=== PATIENT | female | born 1945 | race Caucasian/White ===

== ENCOUNTER 2017-12-26 08:00 | Outpatient (CLI) | payer MEDICARE, OTHER ==
[2017-12-26 13:59] LABS: THYROID STIMULATING HORMONE 0.28 uIU/mL (0.34-5.60)
[2017-12-26 14:04] LABS: ALBUMIN 4.2 g/dL (3.2-5.5); ALBUMIN/GLOBULIN RATIO 1.4 (1.0-2.2); ALKALINE PHOSPHATASE 57 IU/L (42-121); ALT ALANINE AMINOTRANSFERASE 22 IU/L (10-60); AST ASPARTATE AMINOTRANSFERASE 20 IU/L (10-42); BILIRUBIN,TOTAL 0.7 mg/dL (0.2-1.0); BUN - BLOOD UREA NITROGEN 16 mg/dL (6-20); CALCIUM 8.7 mg/dL (8.5-10.3); CARBON DIOXIDE - CO2 26 mmol/L (21-32); CHLORIDE 105 mmol/L (101-111); CHOL/HDL RATIO 3.1 (<4.4); CHOLESTEROL 173 mg/dL; CREATININE 0.9 mg/dL (0.4-1.0); GFR - MDRD 62 (>89); GLUCOSE 104 mg/dL (70-100); HDL CHOLESTEROL 56 mg/dL; LDL CHOLESTEROL,CALCULATED 94 mg/dL; LDL/HDL RATIO 1.7 (<4.4); SODIUM 139 mmol/L (135-145); TOTAL PROTEIN 7.3 g/dL (6.7-8.2); VLDL CHOLESTEROL 23 mg/dL
[2017-12-26 14:15] LABS: BASOPHILS % (AUTO) 0.6 %; EOSINOPHILS # (AUTO) 0.1 10^3/uL (0.0-0.7); EOSINOPHILS % (AUTO) 1.6 %; HGB - HEMOGLOBIN 12.7 g/dL (12.0-16.0); LYMPHOCYTES # (AUTO) 1.7 10^3/uL (1.5-3.5); LYMPHOCYTES % (AUTO) 30.2 %; MEAN CORPUSCULAR HEMOGLOBIN 30.1 pg (27.0-31.0); MEAN CORPUSCULAR HGB CONC 33.3 g/dL (32.0-36.0); MEAN CORPUSCULAR VOLUME 90.3 fL (81.0-99.0); MEAN PLATELET VOLUME 8.2 fL (7.9-10.8); MONOCYTES # (AUTO) 0.3 10^3/uL (0.0-1.0); MONOCYTES % (AUTO) 5.3 %; NEUTROPHILS # (AUTO) 3.4 10^3/uL (1.5-6.6); NEUTROPHILS % (AUTO) 62.3 %; PLT - PLATELET COUNT 298 10^3/uL (130-450); RED BLOOD COUNT 4.23 10^6/uL (4.20-5.40); RED CELL DISTRIBUTION WIDTH 13.8 % (12.0-15.0); WHITE BLOOD COUNT 5.5 x10^3/uL (4.8-10.8)
[2017-12-29 12:31] LABS: HEPATITIS C ANTIBODY NON-REACTIVE (NON-REACTIVE)
== END 2017-12-26 08:01 | disposition home or self-care (01) ==
LOC: LAB.N 08:00
PROVIDERS: ATTEND Physician Assistant Medical
DX: Z79.899 Other long term (current) drug therapy (principal); E55.9 Vitamin D deficiency, unspecified; E53.8 Deficiency of other specified B group vitamins; I45.10 Unspecified right bundle-branch block; E78.5 Hyperlipidemia, unspecified; Z11.59 Encounter for screening for other viral diseases; E06.3 Autoimmune thyroiditis
CPT/HCPCS: 36415; 80053; 80061; 82306; 82607; 83721; 83735; 84443; 85025; 86803

== ENCOUNTER 2018-01-05 14:43 | Outpatient (CLI) | payer MEDICARE, OTHER ==
--- NOTE | 2018-01-06 12:43 | Mammography Report ---
DIGITAL SCREENING MAMMOGRAM: 01/05/2018 CLINICAL INDICATION: A 72-year-old with family history of breast cancer, history of benign biopsy for screening. COMPARISON: 10/2015, 09/2015, 01/2014, 10/2012, 02/2012, 08/2011, 02/2011, 08/2010, 07/2010. TECHNIQUE: Routine CC and MLO projections were obtained of the breasts. FINDINGS: The breasts again demonstrate heterogeneously dense fibroglandular parenchyma bilaterally. Coarse and punctate, typically benign calcifications are present. Biopsy marker in the right upper outer posterior breast is stable. No suspicious masses, clustered microcalcifications, or regions of architectural distortion are identified. IMPRESSION: BENIGN FINDINGS. RECOMMENDATION: Routine annual screening unless otherwise clinically indicated. BI-RADS CATEGORY 2 - BENIGN FINDINGS. STANDARD QUALIFYING STATEMENTS: 1. This examination was reviewed with the aid of Computer-Aided Detection (CAD). 2. A negative or benign imaging report should not delay biopsy if clinically suspicious findings are present. Consider surgical consultation if warranted. More than 5% of cancers are not identified by imaging. 3. Dense breasts may obscure an underlying neoplasm. TD: 01/06/2018 12:20
== END 2018-01-05 14:44 | disposition home or self-care (01) ==
LOC: DI 14:43
PROVIDERS: ATTEND Physician Assistant Medical
DX: Z12.31 Encounter for screening mammogram for malignant neoplasm of breast (principal); Z80.3 Family history of malignant neoplasm of breast
CPT/HCPCS: 77067

== ENCOUNTER 2018-01-05 14:45 | Outpatient (CLI) | payer MEDICARE, OTHER ==
--- NOTE | 2018-01-06 17:38 | DEXA Report ---
DEXA: 01/05/2018 CLINICAL INDICATION: Postmenopausal. TECHNIQUE: Dual energy x-ray absorptiometry (DXA) was performed on a [employer] system. Regions measured are the AP spine, femoral neck, and, if needed, forearm. COMPARISON: None. In accordance with the International Society for Clinical Densitometry (ISCD) guidelines, data from previous exams may be reanalyzed using current recommendations and techniques. This is done to allow a more accurate basis for comparison with the current study. FINDINGS The data for the lumbar spine is as follows: REGION BMD (g/cm/cm) T-SCORE Z-SCORE L1 1.012 -1.0 0.1 L2 1.097 -0.9 0.2 L3 1.144 -0.5 0.6 L4 1.213 0.1 1.2 L1-L4 1.121 -0.5 0.6 NOTE: All evaluable vertebrae are used for classification. The data for the hip is as follows: REGION BMD (g/cm/cm) T-SCORE Z-SCORE Neck 0.843 -1.4 0.0 TOTAL 0.925 -0.7 0.4 NOTE: The femoral neck or total proximal femur, whichever is lowest, is used for classification. IMPRESSION WHO CLASSIFICATION BASED ON THE INTERNATIONAL REFERENCE STANDARD IS OSTEOPENIA (REFERENCE LEFT FEMORAL NECK). FRACTURE RISK IS INCREASED. RECOMMENDATION: Patients with diagnosis of osteoporosis or osteopenia should have regular bone mineral density assessment. For those eligible for Medicare, routine testing is allowed once every 2 years. Testing frequency can be increased for patients who have rapidly progressing disease or for those who are receiving medical therapy to restore bone mass. COMMENT World Health Organization (WHO) definitions for osteoporosis and osteopenia: NORMAL BMD: T-score at 1.0 or higher, fracture risk is low. OSTEOPENIA BMD: T-score between 1.0 and -2.5, fracture risk is increased. OSTEOPOROSIS BMD: T-score at 2.5 or lower, fracture risk high. National Osteoporosis Foundation recommends: 1. Obtain adequate dietary calcium (at least 1200 mg per day) and vitamin D (400 -800 international units per day). 2. Participate, as appropriate, in regular weightbearing and muscle- strengthening exercise. 3. Avoid tobacco use and reduce alcohol and caffeine intake. 4. For more detailed information see the website at www.NOF.org. TD: 01/05/2018 15:48 MTDD
== END 2018-01-05 14:46 | disposition home or self-care (01) ==
LOC: DI 14:45
PROVIDERS: ATTEND Physician Assistant Medical
DX: Z78.0 Asymptomatic menopausal state (principal); M85.88 Other specified disorders of bone density and structure, other site
CPT/HCPCS: 77080

== ENCOUNTER 2018-02-11 08:00 | Outpatient (CLI) | payer MEDICARE, OTHER | END 2018-02-11 08:01 | LOC: LAB.N 08:00 | PROVIDERS: ATTEND Physician Assistant Medical | DX: E06.3 Autoimmune thyroiditis (principal); Z79.899 Other long term (current) drug therapy | CPT/HCPCS: 36415; 84443 ==

== ENCOUNTER 2018-03-31 11:58 | Outpatient (CLI) | payer MEDICARE, OTHER ==
[2018-03-31 20:01] LABS: HB2 TOTAL 14.2 g/dL; HEMOGLOBIN A1C 0.61 g/dL; HEMOGLOBIN A1C % 6.1 % (4.6-6.2)
== END 2018-03-31 11:59 ==
LOC: LAB.N 11:58
PROVIDERS: ATTEND Physician Assistant Medical
DX: Z79.899 Other long term (current) drug therapy (principal); E06.3 Autoimmune thyroiditis; E11.9 Type 2 diabetes mellitus without complications
CPT/HCPCS: 36415; 83036; 84443

== ENCOUNTER 2018-04-23 14:22 | Outpatient (CLI) | payer MEDICARE, OTHER ==
[2018-04-23 17:14] LABS: CREATININE 0.9 mg/dL (0.4-1.0)
== END 2018-04-23 14:23 | disposition home or self-care (01) ==
LOC: LAB.R 14:22
PROVIDERS: ATTEND Physician Assistant Medical
DX: F09 Unspecified mental disorder due to known physiological condition (principal); Z79.899 Other long term (current) drug therapy; E53.8 Deficiency of other specified B group vitamins; E55.9 Vitamin D deficiency, unspecified
CPT/HCPCS: 82306; 82565; 82607

== ENCOUNTER 2018-05-13 12:28 | Outpatient (CLI) | payer MEDICARE, OTHER ==
[2018-05-13] MEDS ORDERED: GADOBUTROL 7.5 MMOL/7.5 ML VIAL ONE (13:24)
[2018-05-13] MEDS ORDERED: GADOBUTROL 7.5 MMOL/7.5 ML VIAL IVP ONE (13:47)
--- NOTE | 2018-05-14 09:44 | MRI Report ---
Reason: PITUITARY CYST,COGNITIVE DISORDER, MILD MODERATE Procedure Date: 05/13/2018 Accession Number: [id number] / [id number] Procedure: MRI - Brain W/WO CPT Code: FULL RESULT: EXAM: MRI BRAIN AND PITUITARY WITHOUT AND WITH CONTRAST. EXAM DATE: 05/13/2018 02:16 PM. CLINICAL HISTORY: 72-year-old female. PITUITARY CYST,COGNITIVE DISORDER, MILD MODERATE. COMPARISON: BRAIN W/WO 10/13/2015 3:29 PM. TECHNIQUE: Multiplanar, multisequence T1-weighted and fluid-sensitive MR sequences of the brain and pituitary were performed. Other: None. IV Contrast: . FINDINGS: Brain Volume: Normal for age. Parenchyma: No masses, infarcts, or hemorrhage. Redemonstration moderate T2/FLAIR hyperintense primarily subcortical but also periventricular and deep white matter lesions within cerebral hemispheres bilaterally, overall similar to the prior study. Foci of susceptibility artifact. No abnormal enhancement. Pituitary: 5.8 mm craniocaudally x 11 mm AP x 15 mm transversely. Interval near complete resolution of the previously seen large cyst within the posterior pituitary, with a possible 4 mm nonenhancing focus still present within the posterior most sella (series 1201 image 7). No hemorrhage or enlargement. The superior margin is concave. The pituitary stalk is normal in thickness, minimally deviated to the right.. The adjacent parasellar structures are within normal limits. Ventricles/Cisterns: No hydrocephalus. No abnormal extra-axial fluid collection or hemorrhage. Orbits: Symmetric and unremarkable. IAC: Symmetric and unremarkable. Vasculature: Normal signal flow void is seen in the major arterial structures at the skull base. The dural sinuses are patent and enhance normally. Sinuses: No acute sinus disease. Bones: No focal pathologic appearing marrow signal changes. Other: None. IMPRESSION: 1. Interval near complete resolution of the previously seen large cyst within the posterior pituitary. A possible 4 mm nonenhancing focus still present within the posterior most sella (series 1201 image 7), although given this far posterior location may represent volume averaging from clivus. Overall, in the absence of treatment, this likely represents spontaneous involution/rupture. 2. No MRI evidence of acute intracranial abnormality. Specifically, no evidence of acute or subacute infarct, acute intracranial hemorrhage, mass, midline shift, or hydrocephalus. No abnormal parenchymal enhancement. 3. Redemonstration moderate T2/FLAIR hyperintense primarily subcortical but also periventricular and deep white matter lesions within cerebral hemispheres bilaterally, overall similar to the prior study. These lesions are nonspecific, and can be seen with the entire gamut of white matter conditions, including migraine headaches and as sequela of chronic microangiopathy. RADIA
== END 2018-05-13 12:29 | disposition home or self-care (01) ==
LOC: DI 12:28
PROVIDERS: ATTEND Physician Assistant Medical
DX: E23.6 Other disorders of pituitary gland (principal); F09 Unspecified mental disorder due to known physiological condition
CPT/HCPCS: 70553; A9585

== ENCOUNTER 2018-10-13 16:11 | Emergency (ER) | payer MEDICARE, OTHER ==
[2018-10-13] MEDS ORDERED: PROMETHAZINE INJ 12.5 MG in SODIUM CHLORIDE 0.9% 50 ML IV STA (16:47)
--- NOTE | 2018-10-13 16:49 | ED Physician Documentation ---
PD HPI NVD - Stated complaint Stated Complaint: NAUSEA - Chief complaint Chief Complaint: Abd Pain - History obtained from History obtained from: Patient, Family () - History of Present Illness Timing - onset: Other (This is a 73-year-old woman with history of dementia. She saw her neurologist a couple of months ago and was started on rivastigmine. This was by a patch. Subsequent to that she started to develop progressive nausea not associated with vomiting, significant changes in her bowel movements, vomiting, or abdominal pain. Also no headache. She saw her physician yesterday for preserved prescribed her Zofran and she feels like that made her worse.) Review of Systems Constitutional: denies: Fever, Chills GI: reports: Nausea. denies: Abdominal Pain, Vomiting, Diarrhea PD PAST MEDICAL HISTORY - Past Medical History Cardiovascular: High cholesterol GI: GERD Psych: Panic attacks Musculoskeletal: Chronic back pain - Past Surgical History Past Surgical History: Yes /[employer]: Hysterectomy HEENT: Tonsil/Adenoidectomy Derm: Skin cancer surgery - Present Medications Home Medications: Ambulatory Orders Medication Instructions Recorded Confirmed Butalb/Acetaminophen/Caffeine PRN 07/24/16 [Fioricet 50-300-40 mg Capsule] Cholecalciferol (Vitamin D3) 1 tab 07/24/16 [Vitamin D3] Cyclosporine [Restasis] 1 each BID 07/24/16 07/24/16 Levothyroxine [Synthroid] 125 mcg PO QDAC 07/24/16 07/24/16 Mesalamine [Canasa] 1 ea 07/24/16 RX: Atorvastatin [Lipitor] 20 mg PO DAILY 07/24/16 07/24/16 RX: Sumatriptan Succinate [Imitrex] 100 mg PO DAILY 07/24/16 07/24/16 RX: raNITIdine [Zantac] 1 tab BID 07/24/16 07/24/16 Vitamin B12 07/24/16 Promethazine [Phenergan] 25 mg PO Q6H PRN #20 tab 10/13/18 - Allergies Allergies/Adverse Reactions: Allergies Allergy/AdvReac Type Severity Reaction Status Date / Time codeine Allergy Anxiety Verified 10/13/18 16:26 hydrocodone Allergy Hallucinati Verified 10/13/18 17:23 ons ibuprofen [From Motrin] Allergy Anxiety Verified 10/13/18 16:26 meperidine HCl * Allergy Hallucinati Verified 10/13/18 16:26 [From Demerol] ons morphine Allergy Anxiety Verified 10/13/18 17:25 oxycodone Allergy Anxiety Verified 10/13/18 17:24 - Social History Does the pt smoke?: No Smoking Status: Never smoker Does the pt drink ETOH?: Yes PD ED PE NORMAL - Vitals Vital signs reviewed: Yes - General General: Other (Mild memory difficulties, retching and slightly tremulous) - Cardiac Cardiac: RRR, No murmur - Respiratory Respiratory: No respiratory distress, Clear bilaterally - Abdomen Abdomen: Normal bowel sounds, Soft, Non tender - Derm Derm: No rash - Extremities Extremities: No edema, No calf tenderness / cord - Neuro Neuro: Normal speech Results - Vitals Vitals: Vital Signs - 24 hr 10/13/18 10/13/18 10/13/18 16:21 18:29 19:28 Temperature 36.8 C 36.5 C 36.6 C Heart Rate 102 H 79 87 Respiratory 18 16 16 Rate Blood Pressure 144/79 H 139/75 H 146/70 H O2 Saturation 99 97 97 Oxygen O2 Source Room air - EKG (time done) 1705 Rate: Rate (enter#) (92) Rhythm: NSR Gordon: LAD Intervals: Normal [place] QRS: Normal Ischemia: Normal ST segments, Non specific changes Computer interpretation: Agree with computer - Labs Labs: Laboratory Tests 10/13/18 10/13/18 10/13/18 17:32 17:32 17:32 WBC 6.9 RBC 3.84 L Hgb 12.2 Hct 35.3 L MCV 92.0 MCH 31.8 H MCHC 34.6 RDW 14.4 Plt Count 293 MPV 7.7 L Neut # (Auto) 4.6 Lymph # (Auto) 1.6 [place] # (Auto) 0.5 Eos # (Auto) 0.0 Baso # (Auto) 0.1 Absolute Nucleated RBC 0.00 Nucleated RBC % 0.0 Sodium 139 Potassium 3.2 L Chloride 102 Carbon Dioxide 26 Anion Gap 11.0 BUN 15 Creatinine 1.1 H Estimated GFR (MDRD) 49 L Glucose 98 Calcium 9.3 Total Bilirubin 0.9 AST 25 ALT 23 Alkaline Phosphatase 60 Troponin I < 0.04 Total Protein 7.5 Albumin 4.4 Globulin 3.1 Albumin/Globulin Ratio 1.4 Lipase 29 PD MEDICAL DECISION MAKING - ED course ED course: 73-year-old woman with nausea after starting Brar stick mean for presumed dementia as she does not have parkinsonism. She has worsening memory difficulties and much of the history is from the . Workup demonstrated only modest hypokalemia which was repleted orally after she had good relief with IV Phenergan here. Departure - Departure Disposition: 01 Home, Self Care Clinical Impression: Nausea, Hypokalemia Condition: Good Record reviewed to determine appropriate education?: Yes Instructions: Hypokalemia Dc Prescriptions: Promethazine [Phenergan] 25 mg PO Q6H PRN #20 tab PRN Reason: Nausea / Vomiting Comments: Call your doctor to arrange a follow-up appointment, make the next available appointment. In the interim, return anytime if worse or if new symptoms develop. Your blood pressure was elevated today on check into the emergency department. This does not mean that you have hypertension, it is a common phenomenon to come to the emergency department and have elevated blood pressure. I recommend that you see your primary care physician within the week to have it rechecked when you are feeling better. Discharge Date/Time: 10/13/18 19:37
[2018-10-13 17:55] LABS: BASOPHILS # (AUTO) 0.1 10^3/uL (0.0-0.1); BASOPHILS % (AUTO) 0.8 %; EOSINOPHILS % (AUTO) 0.5 %; HGB - HEMOGLOBIN 12.2 g/dL (12.0-16.0); LYMPHOCYTES # (AUTO) 1.6 10^3/uL (1.5-3.5); MEAN CORPUSCULAR HEMOGLOBIN 31.8 pg (27.0-31.0); MEAN CORPUSCULAR HGB CONC 34.6 g/dL (32.0-36.0); MEAN PLATELET VOLUME 7.7 fL (7.9-10.8); MONOCYTES # (AUTO) 0.5 10^3/uL (0.0-1.0); MONOCYTES % (AUTO) 6.9 %; NEUTROPHILS # (AUTO) 4.6 10^3/uL (1.5-6.6); NEUTROPHILS % (AUTO) 67.8 %; PLT - PLATELET COUNT 293 10^3/uL (130-450); RED BLOOD COUNT 3.84 10^6/uL (4.20-5.40); RED CELL DISTRIBUTION WIDTH 14.4 % (12.0-15.0); WHITE BLOOD COUNT 6.9 x10^3/uL (4.8-10.8)
[2018-10-13 17:57] LABS: ALBUMIN 4.4 g/dL (3.2-5.5); ALBUMIN/GLOBULIN RATIO 1.4 (1.0-2.2); BILIRUBIN,TOTAL 0.9 mg/dL (0.2-1.0); CALCIUM 9.3 mg/dL (8.5-10.3); CREATININE 1.1 mg/dL (0.4-1.0); TOTAL PROTEIN 7.5 g/dL (6.7-8.2)
[2018-10-13] MEDS ORDERED: PROMETHAZINE 25 MG TABLET PO STA (19:19)
[2018-10-13] MEDS ORDERED: POTASSIUM BICARB 25 MEQ TABLET PO STA (19:19)
[2018-10-13 19:30] VITALS: BP 146/70
== END 2018-10-13 19:37 | disposition home or self-care (01) ==
LOC: ED 16:11
DX: R11.0 Nausea (principal); T44.1X5A Adverse effect of other parasympathomimetics [cholinergics], initial encounter; E87.6 Hypokalemia; F03.90 Unspecified dementia, unspecified severity, without behavioral disturbance, psychotic disturbance, mood disturbance, and anxiety; R03.0 Elevated blood-pressure reading, without diagnosis of hypertension
CPT/HCPCS: 36415; 80053; 83690; 84484; 85025; 93005; 96365; 99283; A9270; J7040; Q0169

== ENCOUNTER 2018-11-06 09:20 | Outpatient (CLI) | payer MEDICARE, OTHER ==
[2018-11-06 12:59] LABS: HGB - HEMOGLOBIN 12.3 g/dL (12.0-16.0); MEAN CORPUSCULAR HGB CONC 33.7 g/dL (32.0-36.0); MEAN CORPUSCULAR VOLUME 91.9 fL (81.0-99.0); MEAN PLATELET VOLUME 7.7 fL (7.9-10.8); RED BLOOD COUNT 3.96 10^6/uL (4.20-5.40); RED CELL DISTRIBUTION WIDTH 14.8 % (12.0-15.0); WHITE BLOOD COUNT 5.5 x10^3/uL (4.8-10.8)
[2018-11-06 13:33] LABS: ALBUMIN 3.9 g/dL (3.2-5.5); ALBUMIN/GLOBULIN RATIO 1.4 (1.0-2.2); ALKALINE PHOSPHATASE 52 IU/L (42-121); ALT ALANINE AMINOTRANSFERASE 19 IU/L (10-60); AST ASPARTATE AMINOTRANSFERASE 21 IU/L (10-42); BILIRUBIN,TOTAL 0.6 mg/dL (0.2-1.0); BUN - BLOOD UREA NITROGEN 19 mg/dL (6-20); CHOL/HDL RATIO 2.3 (<4.4); CHOLESTEROL 209 mg/dL; CREATININE 0.8 mg/dL (0.4-1.0); GFR - MDRD 71 (>89); HDL CHOLESTEROL 90 mg/dL; LDL CHOLESTEROL,CALCULATED 110 mg/dL; LDL/HDL RATIO 1.2 (<4.4); TOTAL PROTEIN 6.7 g/dL (6.7-8.2); VLDL CHOLESTEROL 9 mg/dL
[2018-11-06 13:46] LABS: CALCIUM 9.4 mg/dL (8.5-10.3); CARBON DIOXIDE - CO2 30 mmol/L (21-32); CHLORIDE 104 mmol/L (101-111); GLUCOSE 94 mg/dL (70-100); SODIUM 144 mmol/L (135-145)
[2018-11-06 15:12] LABS: HB2 TOTAL 13.1 g/dL; HEMOGLOBIN A1C 0.57 g/dL; HEMOGLOBIN A1C % 6.1 % (4.6-6.2)
== END 2018-11-06 09:21 | disposition home or self-care (01) ==
LOC: LAB.N 09:20
PROVIDERS: ATTEND Internal Medicine
DX: E78.5 Hyperlipidemia, unspecified (principal); R73.02 Impaired glucose tolerance (oral); E03.9 Hypothyroidism, unspecified
CPT/HCPCS: 36415; 80053; 80061; 83036; 83721; 84443; 85027

== ENCOUNTER 2019-01-13 14:07 | Outpatient (CLI) | payer MEDICARE, OTHER ==
[2019-01-13 18:46] LABS: THYROID STIMULATING HORMONE 9.94 uIU/mL (0.34-5.60)
[2019-01-13 18:48] LABS: FREE T4 (FREE THYROXINE) 1.15 ng/dL (0.58-1.64)
== END 2019-01-13 23:59 | disposition home or self-care (01) ==
LOC: LAB.N 14:07
PROVIDERS: ATTEND Family Medicine
DX: E03.9 Hypothyroidism, unspecified (principal)
CPT/HCPCS: 36415; 84439; 84443; 84481

== ENCOUNTER 2019-06-16 11:24 | Outpatient (CLI) | payer MEDICARE, OTHER ==
[2019-06-16 19:10] LABS: CHOL/HDL RATIO 2.8 (<4.4); CHOLESTEROL 190 mg/dL; HDL CHOLESTEROL 68 mg/dL; LDL CHOLESTEROL,CALCULATED 108 mg/dL; LDL/HDL RATIO 1.6 (<4.4); VLDL CHOLESTEROL 14 mg/dL
[2019-06-16 19:36] LABS: FREE T4 (FREE THYROXINE) 1.02 ng/dL (0.58-1.64)
== END 2019-06-16 23:59 | disposition home or self-care (01) ==
LOC: LAB.N 11:24
PROVIDERS: ATTEND Internal Medicine
DX: E03.9 Hypothyroidism, unspecified (principal); E78.5 Hyperlipidemia, unspecified
CPT/HCPCS: 36415; 80061; 83721; 84439; 84443